=== PATIENT | male | born 1995 | race Caucasian/White ===

== ENCOUNTER 2016-12-09 17:19 | Emergency (ER) | payer BC ==
[~2016-12-09] VITALS: Wt 128.0 kg
--- NOTE | 2016-12-09 18:16 | RADRPT ---
PROCEDURE: XR Ankle. CLINICAL INDICATION: Medial ankle pain. TECHNIQUE: AP and lateral views of the left ankle were performed. COMPARISON: None. FINDINGS: The distal tibia and fibula are normal in appearance. The ankle mortise is maintained. The lateral process of the talus is intact. There is no evidence of fracture. The talus and calcaneus are nor mal in appearance. There is no plantar tendon enthesiophyte. There is no joint effusion. There is mild soft tissue swelling over the medial and lateral ankle. IMPRESSION: 1. Mild soft tissue swelling over the medial and lateral ankle without evidence of underlying fract ure. RPTAT: HGAS .Jasen Soto MD, MD Date Time Electronically viewed and signed by .Jasen Soto MD, on 12/09/2016 18:16 .S/
--- NOTE | 2016-12-09 18:17 | RADRPT ---
PROCEDURE: XR Foot. CLINICAL INDICATION: Left foot pain status post trauma. TECHNIQUE: AP, lateral and oblique views of the left foot was obtained. The images were reviewed on a PACS workstation. COMPARISON: None. FINDINGS: The talus and calcaneus are normal in appearance. The midfoot bones are unremarkable. The metatars als and phalanges normal in appearance. There is no evidence of fracture. The metatarsophalangeal and interphalangeal joints are normal in appearance. There is no periarticular osteopenia or erosiv e changes. There is no significant soft tissue swelling or abnormal calcification. IMPRESSION: Normal radiographs of the left foot. No evidence of fracture or significant degenerative changes. RPTAT: HGAS .Jasen Soto MD, MD Date Time Electronically viewed and signed by .Jasen Soto MD, on 12/09/2016 18:16 .S/
[2016-12-09] MEDS ORDERED: IBUP800T25 PO (18:30)
--- NOTE | 2016-12-09 18:36 | ERD ---
ER Documentation Chief Complaint Date/Time DATE: 12/09/16 TIME: 18:34 Chief Complaint LEFT ANKLE PAIN AND FOOT PAIN FROM FALL WHILE HIKING HPI This 29-year-old male complains of left ankle and foot pain after twisting it 2 weeks ago at a [employer] fair. 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 Denies any fevers, redness, restricted range of motion or weakness. ROS All systems reviewed and are negative except as per history of present illness. Medications Home Meds Active Scripts Ibuprofen* (Motrin*) 800 Mg Tab, 800 MG PO Q6, #20 TAB Prov:JAMIL SEGAL MD 12/09/16 PMhx/Soc Medical and Surgical Hx: pt denies Medical Hx, pt denies Surgical Hx Hx Alcohol Use: No Hx Substance Use: No Hx Tobacco Use: No Smoking Status: Never smoker Physical Exam Vitals Vital Signs Date Time Temp Pulse Resp B/P Pulse Ox O2 Delivery O2 Flow Rate FiO2 12/09/16 17:26 98.5 99 20 135/75 98 Physical Exam Const: [] Alert, [id number] per Head: Atraumatic Eyes: Normal Conjunctiva ENT: Normal External Ears, Nose and Mouth. Neck: Full range of motion..~ No meningismus. Resp: Clear to auscultation bilaterally Cardio: Regular rate and rhythm, no murmurs Abd: Soft, non tender, non distended. Normal bowel sounds Skin: No petechiae or rashes Back: No midline or flank tenderness Ext: No cyanosis, or edema. Minimal tenderness on the medial left ankle joint and at the medial tarsometatarsal joint area. There is no significant swelling, erythema, deformities, restricted range of motion weakness Neur: Awake and alert Psych: Normal Mood and Affect Procedures/MDM X-ray left ankle 3V Interpreted by me: Bones: [No fracture] Joints: No dislocation. Patient has normal left ankle x-ray X-ray left foot 3V Interpreted by me: Bones: [No fracture] Joints: [No dislocation] Foreign body: [None]. Patient has a normal foot x-ray Patient was placed in a left ankle Jared bandage. Patient is neurovascular intact after the Jared bandage. Patient appears with signs and symptoms of likely a left foot sprain and ankle sprain without evidence of neurologic or tendon deficit or bacterial infection. He will be discharged home with a prescription of ibuprofen, instructions for rest, ice and elevation instructions to follow-up his primary doctor and possibly orthopedist for pain next week. He should return sooner for fevers, redness, new symptoms Departure Diagnosis: Primary Impression: Injury of foot Encounter type: initial encounter Laterality: left Qualified Code: S99.922A - Injury of foot, left, initial encounter Condition: Stable Patient Instructions: Sprain Foot Referrals: RUSSELL MARTIN MD Additional Instructions: X-rays read as normal. Recommend rest, ice, elevation, and further observation at home. Recheck with primary doctor post orthopedist for persistent pain after week of rest. Recheck sooner for fevers, redness, new symptoms. May need authorization from primary doctor for specialist visit. JAMIL SEGAL MD Dec 09, 2016 18:36
[2016-12-09 18:48] VITALS: BP 149/80; PULSE 91; RESP 19; TEMP 98.2
== END 2016-12-09 18:48 | disposition home or self-care (01) ==
LOC: FTE 17:19
DX: S99.922A Unspecified injury of left foot, initial encounter (principal); W18.39XA Other fall on same level, initial encounter; Y92.9 Unspecified place or not applicable
CPT/HCPCS: 73610; 73630; Z7502